=== PATIENT | female | born 1980 | race Caucasian/White ===

== ENCOUNTER 2016-11-11 19:24 | Inpatient (IN) | payer OTHER ==
[~2016-11-11] VITALS: Ht 152.4 cm; Wt 43.1 kg
[~2016-11-11 19:24] MED LIST: CEPHALEXIN500 MG PO; CLEOCIN HCL300 MG PO; CLINDAMYCIN HY300 MG PO; GOOD SENSE IBU200 MG PO; HYDROCODONE BIT1 T22 PO; PERCOCET 325 MG1 TA2 PO; VICODIN5-300 PO
--- NOTE | 2016-11-11 19:36 | NUR ---
PER PT ABSCESS IN NOSE X 2 DAYS NOW WITH FEVER, PER PT HOSPITALIZED LAST YR FOR SAME ON MY LEG. PER PT LMP 2 WEEKS AGO
--- NOTE | 2016-11-11 19:38 | NUR ---
LAST DOSE TYLENOL 3 PM SWITCHING ON AND OFF WITH MOTRIN.
--- NOTE | 2016-11-11 20:31 | ED HEAD/FACIAL INJ COMPLAINT ---
History of Present Illness General Chief Complaint: Skin Rash/ Abcess Stated Complaint: ABCESS IN NOSE Source: patient, old records Exam Limitations: no limitations Allergies Coded Allergies: Sulfa (Sulfonamide Antibiotics) (HIVES 11/11/16) diphenhydramine (From BENADRYL) (HEART RACING, ANXIETY, PANIC ATTACK 11/11/16) sulfamethoxazole (From BACTRIM) (HIVES 11/11/16) trimethoprim (From BACTRIM) (HIVES 11/11/16) Reconcile Medications Clindamycin HCl 300 MG CAPSULE 1 CAP PO TID skin infection Lysine HCl (L-Lysine) (Unknown Strength) TABLET (Unknown Dose) PO DAILY SUPPLEMENT (Reported) Multivitamin (Multi-Day Vitamins) 1 EACH TABLET 1 TAB PO DAILY SUPPLEMENT ( Reported) Multivitamin With Minerals (Hair, Skin & Nails) 1 EACH TABLET 1 TAB PO DAILY SUPPLEMENT (Reported) Oxycodone HCl/Acetaminophen (Percocet 5-325 MG Tablet) 5 MG-325 MG TABLET 1 TAB PO Q4P PRN PAIN SCALE 7-10 (SEVERE) Triage Note: PER PT ABSCESS IN NOSE X 2 DAYS NOW WITH FEVER, PER PT HOSPITALIZED LAST YR FOR SAME ON MY LEG. Triage Nurses Notes Reviewed? 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 She states that pain redness and swelling started 2 days ago and has been getting worse. She was able to partially draining abscess from the left nares yesterday and had moderate amount of purulent discharge however since then and is More red swollen and painful, she has had fever chills and sweats, she has had a decreased appetite. Her pain is severe it is throbbing and is worse with palpation. She is concerned that her infection is spreading as it has in the past. Previously she has failed outpatient antibiotics for treatment of these. She has pain that is radiating into her teeth and gumline and there is swelling along the anterior aspect of the maxillary region and lips (MONTY CONTI) Vital Signs & Intake/Output Vital Signs & Intake/Output Vital Signs Date Time Temp Pulse Resp B/P Pulse O2 O2 Flow FiO2 Ox Delivery Rate 11/14 0841 98.7 62 16 98/56 97 Room Air 11/13 2200 98.4 68 20 100/70 98 Room Air ED Intake and Output 11/14 0000 11/13 1200 Intake Total 1350 800 Output Total 600 Balance 750 800 Intake, IV 350 800 Intake, Oral 1000 Output, Urine 600 Past History Travel History Traveled to [place] past 21 day No Medical History Any Pertinent Medical History? see below for history Neurological: NONE EENT: NONE Cardiovascular: NONE Respiratory: NONE Gastrointestinal: NONE Hepatic: NONE Renal: NONE Musculoskeletal: NONE Psychiatric: anxiety, depression Endocrine: NONE Blood Disorders: NONE Cancer(s): NONE S[employer]IOR [employer]ER DBA/Reproductive: NONE Other Medical Hx: ABSCESS History of MRSA: Yes Active MRSA Infection: Yes History of VRE: No History of CDIFF: No Influenza Vaccine: 06/03/15 Tetanus Vaccine: 11/18/11 Surgical History Surgical History: N Psychosocial History Who do you live with Spouse What is your primary language Qatari Tobacco Use: Never used Family History Hx Contributory? No (MONTY CONTI) Review of Systems Review of Systems Constitutional: Reports: see HPI. Respiratory: Reports: no symptoms. Cardiovascular: Reports: no symptoms. GI: Reports: no symptoms. Genitourinary: Reports: no symptoms. Musculoskeletal: Reports: no symptoms. Neurological/Psychological: Reports: no symptoms. Hematologic/Endocrine: Reports: no symptoms. Immunologic/Allergic: Reports: no symptoms. All Other Systems: Reviewed and Negative (MONTY CONTI) Physical Exam Physical Exam General Appearance: well developed/nourished, mild distress Eyes: Bilateral: PERRL, EOMI. Ears, Nose, Throat: normal pharynx, normal ENT inspection, hearing grossly normal Neck: normal inspection, supple Respiratory: normal breath sounds Cardiovascular: regular rate/rhythm Gastrointestinal: soft, non-tender Back: normal inspection Extremities: normal inspection, normal range of motion, no edema Psychiatric: awake, alert, oriented x 3 Skin: intact, normal color, warm/dry Lymphatic: no anterior cervical tejinder Comments: Examination of the head and face reveals tympanic membranes normal appearing pupils equally round and reactive to light, head is atraumatic Intra-nares left side with 3 x 3 cm abscess that is erythematous indurated severely tender with swelling spreading to the upper lip and intraorally noted in the gum line on the maxilla. Positive warmth. (MONTY CONTI) Physical Exam Cranial Nerves: normal hearing, normal speech, PERRL (ASHU BLACKWOOD MD) Progress Hand-Off Endorsed To: ASHU BLACKWOOD MD Endorsed Time: 2212 Pending: CT Comments: tx with iv vanco for mrsa abscess (presumed) labs and ct of maxillofacial region ordered, consider admission. (MONTY CONTI) Differential Diagnosis: abscess and cellulitis Plan of Care: Orders Procedure Date/time Status Discharge Patient 11/14 UNK Active MISSING MEDICATION FORM 11/14 UNK Active Laboratory Tests 11/14/16 0710: Anion Gap 6, Estimated GFR > 60, BUN/Creatinine Ratio 15.7, CBC w Diff NO MAN DIFF REQ, RBC 3.49 L, MCV 92.5, MCH 32.2 H, RDW 13.1, MPV 7.5, Gran % 66.5, Lymphocytes % 17.8 L, Monocytes % 9.6 H, Eosinophils % 5.7 H, Basophils % 0.4 , Absolute Granulocytes 3.2, Absolute Lymphocytes 0.8 L, Absolute Monocytes 0.5 , Absolute Eosinophils 0.3, Absolute Basophils 0, PUBS MCHC 34.8 Diagnostic Imaging: Viewed by Me: CT Scan. Discussed w/RAD: CT Scan. Radiology Impression: There is a peripherally enhancing fluid collection within the premaxillary soft tissues consistent with an abscess. There are no periapical lucencies in the maxillary alveolar process therefore this abscess is not felt to be odontogenic. Comments: Discussed with ENT/Kingg (ASHU BLACKWOOD MD) Departure Departure Condition: Stable Referrals: OTERO GIBRAN KHOURY (PCP/Family) Departure Forms: Customer Survey General Discharge Information Prescriptions: Current Visit Scripts Oxycodone HCl/Acetaminophen (Percocet 5-325 MG Tablet) 1 TAB PO Q4P PRN PAIN SCALE 7-10 (SEVERE) #18 Clindamycin HCl 1 CAP PO TID #24 CAP (MONTY CONTI) Departure Time of Disposition: 0 Disposition: STILL A PATIENT Clinical Impression Primary Impression: Abscess of face Secondary Impressions: Abscess of nasopharynx Admission Note Spoke With: RABIA GLORIA MD Documentation of Exam: Documentation of any treatments & extenuating circumstances including Concerns Regarding Discharge (functional status, medication knowledge or non-compliance, living conditions, etc.) that warrant an admission rather than observation: IV antibiotics IV analgesia ENT consultation medication adjustment continuing care discharge planning PA/ASSOCIATE PROGRAMMER Co-Sign Statement Statement: ED Attending supervision documentation- x I saw and evaluated the patient. I have also reviewed all the pertinent lab results and diagnostic results. I agree with the findings and the plan of care as documented in the PA's/ASSOCIATE PROGRAMMER's documentation. [] I have reviewed the ED Record and agree with the PA's/ASSOCIATE PROGRAMMER's documentation. [] Additions or exceptions (if any) to the PAs/ASSOCIATE PROGRAMMER's note and plan are summarized below: [] (ASHU BLACKWOOD MD) Departure Condition: Stable Referrals: GIBRAN OTERO MD (PCP/Family) Departure Forms: Customer Survey General Discharge Information (MONTY CONTI) Departure Time of Disposition: 2300 Disposition: STILL A PATIENT Clinical Impression Primary Impression: Abscess of face Secondary Impressions: Abscess of nasopharynx Admission Note Spoke With: RABIA GLORIA MD Documentation of Exam: Documentation of any treatments & extenuating circumstances including Concerns Regarding Discharge (functional status, medication knowledge or non-compliance, living conditions, etc.) that warrant an admission rather than observation: IV antibiotics IV analgesia ENT consultation medication adjustment continuing care discharge planning PA/ASSOCIATE PROGRAMMER Co-Sign Statement Statement: ED Attending supervision documentation- x I saw and evaluated the patient. I have also reviewed all the pertinent lab results and diagnostic results. I agree with the findings and the plan of care as documented in the PA's/ASSOCIATE PROGRAMMER's documentation. [] I have reviewed the ED Record and agree with the PA's/ASSOCIATE PROGRAMMER's documentation. [] Additions or exceptions (if any) to the PAs/ASSOCIATE PROGRAMMER's note and plan are summarized below: [] (ASHU BLACKWOOD MD)
[2016-11-11 20:44] LABS: ABSOLUTE BASOPHIL COUNT 0 /CUMM (0.0-0.2); ABSOLUTE EOSINOPHIL COUNT 0 /CUMM (0.0-0.7); ABSOLUTE GRANULOCYTE CT 9.5 /CUMM (1.4-6.5); ABSOLUTE LYMPH COUNT 0.9 /CUMM (1.2-3.4); ABSOLUTE MONOCYTE COUNT 0.8 /CUMM (0.10-0.60); BASOPHIL % 0.4 % (0.0-2.0); EOSINOPHIL % 0.1 % (0-5); GRANULOCYTE % 83.9 % (42.2-75.2); HEMATOCRIT 36.4 % (37-47); MEAN CORPUSCULAR HGB 31.6 PG (27.0-31.0); MEAN CORPUSCULAR VOLUME 92.9 FL (81.0-99.0); MEAN PLATELET VOLUME 7.3 FL (7.4-10.4); PLATELET COUNT 191 /CUMM (130-400); RBC DISTRIBUTION WIDTH 12.8 % (11.5-14.5); RED BLOOD CELL CT 3.92 /CUMM (4.20-5.40); WHITE BLOOD CELL COUNT 11.3 /CUMM (4.8-10.8)
[2016-11-11] MEDS ORDERED: MULTI-DAY VITA1 EACH PO (21:11)
[2016-11-11] MEDS ORDERED: HAIR, SKIN & N1 EACH PO (21:11)
[2016-11-11] MEDS ORDERED: L-LYSINE500 M3 PO (21:12)
--- NOTE | 2016-11-11 21:27 | NUR ---
PT AMBULATORY TO CT
--- NOTE | 2016-11-11 21:50 | NUR ---
PT BACK FROM CT, NO COMPLAINTS, VANCO INFUSING.
--- NOTE | 2016-11-11 22:18 | CT SCAN REPORT ---
EXAMINATION: CT MAXILLOFACIAL WITH CONTRAST CLINICAL INFORMATION: Presumptive diagnosis abscess maxillary region, left naris. Pain, swelling, purulence, and fever. COMPARISON: No relevant prior imaging is available. TECHNIQUE: Multidetector helical imaging was performed in the axial plane with generation of coronal and sagittal reformatted images. The examination was performed after the administration of 95 mL of Optiray 320 intravenous contrast DLP: 669.5 mGy-cm FINDINGS: There is a peripherally enhancing discrete fluid collection located within the premaxillary soft tissues to the left of midline measuring 1.3 x 1.5 cm in AP by transverse dimensions. This finding is best illustrated on axial postcontrast image 86 of 233 series 5. There is inflammatory stranding within the adjacent subcutaneous tissues. There are no periapical lucencies in the maxillary alveolar process therefore this abscess is not felt to be odontogenic. There is mild lobulated mucosal thickening within the alveolar recesses of both maxillary sinuses. The primary maxillary sinus ostia are patent. There is bilateral infundibular narrowing. No ostiomeatal unit dysfunction. The left frontal sinus is well aerated. The right is not pneumatized. Frontal recesses are patent. Ethmoid air cells and sphenoid sinus are well aerated. Sphenoethmoidal recesses are patent. The nasal septum deviates the left anteriorly. The nasal cavity is otherwise unremarkable. The lamina papyracea and orbital floors are intact. There is no worrisome retrobulbar mass or inflammation. Orbital apices are unremarkable. Limited visualization of intracranial structures reveals no abnormal finding. There is no mastoid or middle ear effusion. The temporomandibular joints are symmetric. IMPRESSION: There is a peripherally enhancing fluid collection within the premaxillary soft tissues consistent with an abscess. There are no periapical lucencies in the maxillary alveolar process therefore this abscess is not felt to be odontogenic.
--- NOTE | 2016-11-11 22:34 | NUR ---
DR BLACKWOOD TO DISCUSS RESULTS WITH PT AND DETERMINE DISPO. PT VOICING NO COMPLAINTS, VANCO INFUSING.
--- NOTE | 2016-11-11 22:43 | NUR ---
PER DR BLACKWOOD PT TO BE ADMITTED.
--- NOTE | 2016-11-11 22:52 | NUR ---
VANCO RATE DROPPED TO 125 AT PT REQUEST, PT STATING "IT ALWAYS MAKES ME ITCH, THEY JUST RUN IT SLOWER." DENIES ANY HX OF MORE SERIOUS RXNS AND STATES SHE HAS HAD IV VANCO MULTIPLE TIMES. NO VISIBLE REDNESS OR HIVES, NO AIRWAY COMPLAINTS.
--- NOTE | 2016-11-11 22:52 | History & Physical ---
ALLY KHOURY,[facility] 11/11/16 8122: General Information and HPI MD Statement: I have seen and personally examined OLIMPIA KEY and documented this H&P. The patient is a 36 year old F who presented with a patient stated chief complaint of left nostril swelling and swelling of her upper lip and gums. Source of Information: patient, old records Exam Limitations: no limitations History of Present Illness: Ms Key is a 36-year-old female past medical history of recurrent folliculitis with last admission to [facility] in 10/2015 (for Right lower leg cellulitis) who presented to the emergency department on 11/11/2016 after worsening upper lip and left nostril pain. The patient states that she was in her usual state of health until 48 hours ago when she noted she had developed a pimple on the inner aspect of her left nostril. The patient states that this pimple continued to progress and increase in size until it finally popped and drained. Drainage was described as purulent and non foul smelling.The patient also endorses that she used some topical Mupirocin in her nostrils. Over the last 24 hours the patient states that the pain has progressed from her left inner nostril to her upper palate and inner top lip. Prior to admission the patient rates the pain at an 8 out of 10 in severity. Patient states that the pain was worse with movement, smiling and chewing. Patient has had no recent trauma or did not insert on foreign objects into her nostril. Patient also endorses that she was febrile up to 101.3 she took NSAIDs for symptomatic relief. She also states that she had associated chills. She denies any nausea vomiting or weakness. Must be noted that the patient states that her had a similar pimple approximately 2 weeks ago. Patient also states that her 2 children have previously had a single episode each of MRSA cellulitis. Both episodes occured approximately 5 years ago. Allergies/Medications Allergies: Coded Allergies: Sulfa (Sulfonamide Antibiotics) (HIVES 11/11/16) diphenhydramine (From BENADRYL) (HEART RACING, ANXIETY, PANIC ATTACK 11/11/16) sulfamethoxazole (From BACTRIM) (HIVES 11/11/16) trimethoprim (From BACTRIM) (HIVES 11/11/16) Home Med list Clindamycin HCl 300 MG CAPSULE 1 CAP PO TID skin infection Lysine HCl (L-Lysine) (Unknown Strength) TABLET (Unknown Dose) PO DAILY SUPPLEMENT (Reported) Multivitamin (Multi-Day Vitamins) 1 EACH TABLET 1 TAB PO DAILY SUPPLEMENT ( Reported) Multivitamin With Minerals (Hair, Skin & Nails) 1 EACH TABLET 1 TAB PO DAILY SUPPLEMENT (Reported) Oxycodone HCl/Acetaminophen (Percocet 5-325 MG Tablet) 5 MG-325 MG TABLET 1 TAB PO Q4P PRN PAIN SCALE 7-10 (SEVERE) Compliance With Home Meds: GOOD Past History Travel History Traveled to [place] past 21 day No Medical History Neurological: NONE EENT: NONE Cardiovascular: NONE Respiratory: NONE Gastrointestinal: NONE Hepatic: NONE Renal: NONE Musculoskeletal: NONE Psychiatric: anxiety, depression Endocrine: NONE Blood Disorders: NONE Cancer(s): NONE FOUNDATION ASSISTANT/Reproductive: NONE Other Medical Hx: <2015 Groin abcess 10/2015: RLE Abscess 06/2016: Right Thumbs Abscess History of MRSA: Yes Active MRSA Infection: Yes History of VRE: No History of CDIFF: No Influenza Vaccine: 06/03/15 Tetanus Vaccine: 11/18/11 Surgical History Surgical History: N Past Family/Social History Family History Relations & Conditions if any MOTHER, , Age 50-60; Cause: Overdose. FATHER, , Age 30-40; Cause: Suicide. Psychosocial History Where do you live? Home Who Do You Live With? spouse Services at Home: None Primary Language: Angolan Smoking Status: Never Smoked ETOH Use: occasional use Illicit Drug Use: denies illicit drug use Functional Ability ADLs Independent: dressing, eating, toileting, bathing. Ambulation: independent IADLs Independent: shopping, housework, finances, food prep, telephone, transportation , medication admin. Sexual History Sexually Active Yes # of partners 1 Sexual Orientation Heterosexual Employment History Employment Employed Profession/Employer Self Employed Review of Systems Review of Systems Constitutional: Reports: see HPI, chills, fever. Denies: diaphoresis, malaise, weakness. Cardiovascular: Denies: chest pain, edema, orthopena, palpitations, peripheral edema. Respiratory: Denies: cough, hemoptysis, orthopnea, short of breath. GI: Denies: abdominal pain, bloating, constipation, diarrhea, distention, bowel incontinence, nausea, vomiting. Genitourinary: Denies: discharge, dysuria, frequency, hematuria. Musculoskeletal: Denies: back pain, gout, joint pain, joint swelling. Exam & Diagnostic Data Last 24 Hrs of Vital Signs/I&O Vital Signs Date Time Temp Pulse Resp B/P Pulse O2 O2 Flow FiO2 Ox Delivery Rate 11/11 2149 97.7 82 18 104/57 99 Room Air 11/11 2109 Room Air 11/11 1936 100.4 92 22 109/75 98 Physical Exam General Appearance Alert, Oriented X3, Cooperative HEENT PERRLA, EOMI, Mucous Membr. moist/pink, Left inner nosril: furuncle. Generalized Erythema and Tenderness Philtrum. Upper Bucal Mucosa: Furuncle. Neck Supple, No JVD Lymphatic Axillary nl, Cervical nl Cardiovascular Regular Rate, Normal S1, Normal S2, No Murmurs Lungs Clear to Auscultation Abdomen Normal Bowel Sounds, Soft, No Tenderness Neurological Normal Speech, Sensation Intact Extremities No Edema, Normal Pulses Last 24 Hrs of Labs/Velasquez: Laboratory Tests 11/11/162321: Lactic Acid Cancelled 11/11/162035: Anion Gap 11, Estimated GFR > 60, BUN/Creatinine Ratio 19.0, Glucose 113 H, Lactic Acid 0.8, Calcium 9.3, Total Bilirubin 0.5, AST 17, ALT 27, Alkaline Phosphatase 51, Total Protein 7.0, Albumin 4.4, Globulin 2.6, Albumin/Globulin Ratio 1.7, Total Beta HCG NEGATIVE, CBC w Diff NO MAN DIFF REQ, RBC 3.92 L, MCV 92.9, MCH 31.6 H, RDW 12.8, MPV 7.3 L, Gran % 83.9 H, Lymphocytes % 8.1 L, Monocytes % 7.5, Eosinophils % 0.1, Basophils % 0.4, Absolute Granulocytes 9.5 H, Absolute Lymphocytes 0.9 L, Absolute Monocytes 0.8 H, Absolute Eosinophils 0, Absolute Basophils 0, PUBS MCHC 34.0 Microbiology 11/11 2043 BLOOD: Blood Culture - RECD 11/11 2035 BLOOD: Blood Culture - RECD Diagnostic Data Other Results EXAMINATION: CT MAXILLOFACIAL WITH CONTRAST CLINICAL INFORMATION: Presumptive diagnosis abscess maxillary region, left naris. Pain, swelling, purulence, and fever. COMPARISON: No relevant prior imaging is available. TECHNIQUE: Multidetector helical imaging was performed in the axial plane with generation of coronal and sagittal reformatted images. The examination was performed after the administration of 95 mL of Optiray 320 intravenous contrast DLP: 669.5 mGy-cm FINDINGS: There is a peripherally enhancing discrete fluid collection located within the premaxillary soft tissues to the left of midline measuring 1.3 x 1.5 cm in AP by transverse dimensions. This finding is best illustrated on axial postcontrast image 86 of 233 series 5. There is inflammatory stranding within the adjacent subcutaneous tissues. There are no periapical lucencies in the maxillary alveolar process therefore this abscess is not felt to be odontogenic. There is mild lobulated mucosal thickening within the alveolar recesses of both maxillary sinuses. The primary maxillary sinus ostia are patent. There is bilateral infundibular narrowing. No ostiomeatal unit dysfunction. The left frontal sinus is well aerated. The right is not pneumatized. Frontal recesses are patent. Ethmoid air cells and sphenoid sinus are well aerated. Sphenoethmoidal recesses are patent. The nasal septum deviates the left anteriorly. The nasal cavity is otherwise unremarkable. The lamina papyracea and orbital floors are intact. There is no worrisome retrobulbar mass or inflammation. Orbital apices are unremarkable. Limited visualization of intracranial structures reveals no abnormal finding. There is no mastoid or middle ear effusion. The temporomandibular joints are symmetric. IMPRESSION: There is a peripherally enhancing fluid collection within the premaxillary soft tissues consistent with an abscess. There are no periapical lucencies in the maxillary alveolar process therefore this abscess is not felt to be odontogenic. DICTATED BY: SANDRA KHOURY,KHOI De Guzman Assessment/Plan Assessment: This is a 36-year-old female with past medical history of MRSA who has developed a furuncle and further developed an abcsess. Patient does not endorse any factors that might be predisposing her to recurrent infections. She does state that she has been compliant with mupirocin and Chlorhexidine wipes. ------- In the emergency department she was given a one-time dose of vancomycin, Toradol and ibuprofen for symptomatic relief. -------- #MRSA Furunculosis with subsequent development of a premaxilliary Abscess Admit the patient to general medicine floor. Initiate contact precautions. Continue IV Vancomycin 750 mg BID. Unasyn 1000mg Q8 for anerobe and gram - Coverage. Acetaminophen 650 mg for fever. Chlorhexidine wipes when necessary ID Consult in AM ENT Consult in AM CBC in a.m. BEP in a.m. Ensure area remains clean and consider warm compresses for symptomatic relief.Keep area dry. Can be considered for long-term antibiotic with clindamycin as prophylactic treatment. Patient will most likely need referral to an manager sql for further workup as to recurrent MRSA cellulitis. Likely due to questionable immunodeficiency. Diet Heart healthy DVT prophylaxis Lovenox subcutaneous Code Full Code As Ranked By This Provider Problem List: 1. Abscess and cellulitis Core Measures/Miscellaneous Acute Coronary Syndrome ACS Diagnosis: No Cerebrovascular Accident CVA/TIA Diagnosis: No Congestive Heart Failure CHF Diagnosis: No Venous Thromboembolism VTE Risk Factors: Acute medical illness VTE Prophylaxis Ordered Inpt: Pharm- Lovenox No Mech VTE prophylaxis d/t: No contraindications No VTE Pharm Prophylaxis d/t: No contraindications VTE Diagnosis: No VTE Type: NONE VTE Confirmed by (Test): NONE Severe Sepsis Severe Sepsis Present: No Septic Shock Septic Shock Present: No Miscellaneous Documentation Attending Case Discussed With: RABIA GLORIA MD Primary Care Physician: GIBRAN OTERO MD Patient sees these Specialists NA Level of Patient Care: General Medicine SHERON GLORIA MD 11/11/16 2314: Attending MD Review Statement Attending Statement Attending MD Statement: examined this patient, discuss w/resident/PA/WRAP CHECKER, agreed w/resident/PA/WRAP CHECKER Attending Assessment/Plan: 36 yo F with h/o recurrent furunculosis (right groin MRSA requiring I & D, RLE and most recently right thumb) is here for evaluation of abscess in her nose. She noticed a pimple to the left nasal columella two days ago, that drained on its own, associated with upper lip swelling and erythema. Fever 101.3, chills+. Odynophagia+. Since her discharge in Oct 2015, she has been paying attention to good hygiene, sterilizing the skin with Hibiclens and mupirocin to the nares. She denies trauma or picking her nose. Vitals: Tmax 100.4, otherwise stable. Nasal exam suggestive of a small indurated erythematous area to the left columella (unable to assess its posterior extent), with swelling extending to upper lip. Labs: WBC 11.3, BUN 19. CT maxillofacial: abscess within the premaxillary soft tissues, no periapical lucencies in the maxillary alveolar process hence not odontogenic. 1. Left nasal furunculosis with premaxillary abscess. GM admit, blood cultures, cover for MRSA with IV Vancomycin, will add IV Unasyn for [id number] coverage, ENT consult in AM for possible needle drainage. ID consult in AM. IV fluids and pain management. DVT ppx Alps (early ambulation, low risk). Full code. VIRGINIA MONTOYA 11/11/16 0000: Resident Review Statement Resident Statement: examined this patient, discussed with media relations intern, agreed with media relations intern, discussed with family, reviewed EMR data (avail), discussed with nursing , discussed with case mgmt, reviewed images, amended to note Other Findings: 36-year-old woman with past medical history of recurrent fruncle, cellulitis and soft tissue infection with MRSA not chronic suppressive Abx therapy presented to the ED complaining of skin lesion in her left nostril and soreness of her mouth and swelling of her upper gums and lip. For the past year patient had 4 episodes of soft tissue infection/fruncle with MRSA , the most recent one resulted in hospitalization in [facility] from October 03 to 10/07/2015, during which patient was treated with IV vancomycin and discharged home on by mouth clindamycin. Two days ago when she developed a small pimple on her left nostril which was associated with excruciating sharp constant pain of 8 out of 10. Her pimple became larger and eventually drained yellow fluid. She also had max temperature of 101.3 at home, + shaking chills. Her symptoms progressively got worse and patient started feeling pain and swelling in her mouth (upper gums and upper lip). She reports odynophagia, but denies nausea vomiting diarrhea. Recent travel or sick contact, recent trauma to her nose, recent infection and recent stress, history of eczema. Patient mentions that her has a history of frequent spontaneous boils and had recently recovered from another episode. 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 FH: non-contributory except for one episode of MRSA in each one of her kids at a very young age ROS: Swelling and soreness of upper gum and lips and left nostril. Physical exam: HEET: Left nostril: There is a skin breakage at the antral medial surface of the left nostril, no obvious drainage,+ erythema and tenderness; right nostril within normal limits; Buccal mocous: there is a frumcle in the mucousal surface of the upper lip; no lymphadenopathy, proper oral hygiene; CV: S1S2 no murmur, lungs are clear. Abdomen and extremities: WNL. Lab findings Sodium 136 BUN 19 creatinine 1 WBC 11.3 with significant left shift but no bandemia hemoglobin 12.4 hematocrit 36.[address] scan: There is a peripherally enhancing fluid collection within the premaxillary soft tissues consistent with an abscess. There are no periapical lucencies in the maxillary alveolar process therefore this abscess is not felt to be odontogenic. Assessment 36-year-old woman with history of recurrent frontal/soft tissue infection with MRSA was admitted for frunckle in her left nostril and buccal mocousal membrane. #1 MRSA infection with protocol mucosal involvement * Admit to general medical floor * Vancomycin 750 mg IV twice a day start from tomorrow at 10 AM * Unasyn 1000 mg every 8 hours for gram-negative coverage considering focal mucosal membrane involvement * Repeat CBC in the a.m. * ID consult in the a.m. * Odynophagia and poor oral intake; normal saline 100 mL per hour * Follow ENT recommendation in thet morning * Pain management mainly with IV anti-inflammatory medications Heparin 5000 units subcutaneous every 8 hours for DVT prophylaxis Regular diet Full code
--- NOTE | 2016-11-11 23:16 | NUR ---
PT AMBULATING AROUND ROOM WITHOUT DIFFICULTY, AWARE OF POC AND ORDERS FOR PRN PAIN MEDS, NO COMPLAINTS AT THIS TIME. HOUSE STAFF AT BEDSIDE.
--- NOTE | 2016-11-11 23:19 | NUR ---
DR GLORIA AT BEDSIDE FOR EVAL. MADE AWARE OF DUPLICATE VANCO ORDERS.
--- NOTE | 2016-11-12 | NUR ---
PT ASSIGNED TO 171-1
--- NOTE | 2016-11-12 00:13 | NUR ---
REPORT GIVEN TO MAGGIE SERRANO
[2016-11-12 00:30] VITALS: BP 110/60
--- NOTE | 2016-11-12 02:04 | Admission Certification ---
Admission Certification Certification Statement - As attending physician, I certify that at the time of - admission, based on clinical presentation, severity of - symptoms, need for further diagnostic testing and - therapeutic interventions, and risk of adverse outcomes - without in-hospital treatment, in my clinical assessment, - this patient requires an acute hospital stay for a minimum - of two nights or longer. I have also considered psychsocial - factors such as support system, advanced age, financial - issues, cognitive issues, and failed out-patient treatments, - past re-admission history, safety of patient, and lack of - compliance as applicable. Specific rationale supporting this admission is: Left nasal furunculosis with pre-maxillary soft tissue abscess.
--- NOTE | 2016-11-12 07:24 | PN- Housestaff ---
JEFFRY KHOURY,[facility] 11/12/16 0724: Subjective Follow-up For: MRSA Furunculosis with subsequent development of a premaxilliary Abscess Subjective: Patient was seen and examined this morning, she reported pain over upper lip and left nostrail. She denied any headache, fever or chills. She had fever and chills before admission. She denied any visual changes, hearing changes. She denied any shortness of breath, palpitation. Denied any abdominal pain, nausea or vomiting, diarrhea. Denied IV drug use, chronic health conditions including diabetes. Patient had multiple MRSA infection total of 4 episodes over the period of last year, 3 was treated as an outpatient with clindamycin, and one was admitted to the hospital treated with vancomycin and discharged on clindamycin. Patient didn't have any medical complaints before last year. Review of Systems Constitutional: Reports: see HPI. Objective Last 24 Hrs of Vital Signs/I&O Vital Signs Date Time Temp Pulse Resp B/P Pulse O2 O2 Flow FiO2 Ox Delivery Rate 11/12 1622 98.0 83 20 100/50 97 Room Air 11/12 1422 102/52 11/12 0830 98.4 83 20 80/50 97 Room Air 11/12 0030 98.2 79 20 110/60 98 Room Air 11/11 2150 97.7 82 18 104/57 99 Room Air 11/11 2110 Room Air Intake & Output 11/12 1600 11/12 0800 11/12 0000 Intake Total 1700 640 250 Output Total Balance 1700 640 250 Intake, IV 1300 400 250 Intake, Oral 400 240 Patient 43.091 kg 43.091 kg Weight Physical Exam General Appearance: Alert, Oriented X3, Cooperative, No Acute Distress Skin: mild swelling and erythema of upper lip no discharge, no bleeding HEENT: Atraumatic, PERRLA, EOMI, Mucous Membr. moist/pink Neck: Supple Cardiovascular: Regular Rate, Normal S1, Normal S2, No Murmurs Lungs: Clear to Auscultation, Normal Air Movement Abdomen: Normal Bowel Sounds, Soft, No Tenderness Neurological: Normal Gait, Normal Speech, Strength at 5/5 X4 Ext, Normal Tone, Sensation Intact, Cranial Nerves 3-12 NL, Reflexes 2+ Extremities: No Clubbing, No Cyanosis, No Edema, Normal Pulses Assessment/Plan Assessment: This is a 36-year-old female with past medical history of MRSA who has developed a furuncle and further developed an abcsess. Patient does not endorse any factors that might be predisposing her to recurrent infections. She does state that she has been compliant with mupirocin and Chlorhexidine wipes. Problems #MRSA Furunculosis with subsequent development of a premaxilliary Abscess -Maxillofacial with contrast CT reveled There is a peripherally enhancing fluid collection within the premaxillary soft tissues consistent with an abscess. There are no periapical lucencies in the maxillary alveolar process therefore this abscess is not felt to be odontogenic. -Temperature 98.4 with MAXIMUM TEMPERATURE 100.4, white blood cell 8.3<11.3 -ID consultation was obtained given history of recurrent MRSA infection 4 times over the period of last year -Continue IV Unasyn 750 mg twice a day -Discontinue Unasyn -Follow cultures blood and head, neck culture -ENT consultation was obtained, patient had pus evacuation by an incision at the inner surface of her upper lip -Percocet 1 tab every 6 for pain when necessary -Consider decolonization as an outpatient upon discharge -For possible discharge on Tuesday #Hypotension -This morning patient blood pressure was 80/40, repeated blood pressure 80/50 -Patient was given challenge fluid off 1 L bolus -Repeated blood pressure 102/52 Diet Heart healthy DVT prophylaxis Lovenox subcutaneous Code Full Code Problem List: 1. Abscess and cellulitis Pain Ratin Pain Location: upper lip, left nostril Pain Goal: Pain 4 or less Pain Plan: Percocet 1 tab every 6 when necessary Tomorrow's Labs & Rationales: [facility] ROLAN KHOURY,[place] 11/12/16 1219: Attending MD Review Statement Attending Statement Attending MD Statement: examined this patient, discuss w/resident/PA/IRRIGATION PUMP INSTALLER, agreed w/resident/PA/IRRIGATION PUMP INSTALLER, reviewed EMR data (avail), discussed with nursing, discussed with case mgmt, amended to note Attending Assessment/Plan: Patient seen and examined. Lying comfortably in bed not in any distress. She is afebrile. She reports some pain in the upper lip. Denies difficulty swallowing. Denies any discharge currently no she did report significant discharge at home. She is hypotensive with systolic blood pressure in the 80s this morning. Patient reports that she does run low blood pressure. Review of her admission in October shows that her blood pressure was in the 90s to low 100s. She is not tachycardic. She is nontoxic looking. On examination she has mild swelling of the upper lip. There is mild erythema within the left nostril. There is no discharge. It is mildly tender. She has no other lesion around the body. Problems: 1. Cellulitis with abscess left premaxillary soft tissue. 2. MRSA colonization. 3. Hypertension Plan: -Continue antibiotic therapy with vancomycin. Follow blood cultures. -Follow-up with ENT service regarding incision and drainage although there is no appearance of a significant enough collection for drainage. -Apply warm compress to the upper lip and nares. -Discussed with the ID service regarding sterilization after treatment of current infection to prevent future episodes. -Patient is hypotensive but does not appear overtly septic. Her lactic acid level is within normal limits. She is petite and has a history of low blood pressure. Would recommend fluid bolus with 1 L of normal saline and reevaluating her blood pressure. -DVT prophylaxis with frequent ambulation.
[2016-11-12 08:16] LABS: ABSOLUTE BASOPHIL COUNT 0 /CUMM (0.0-0.2); ABSOLUTE EOSINOPHIL COUNT 0.2 /CUMM (0.0-0.7); ABSOLUTE GRANULOCYTE CT 6.3 /CUMM (1.4-6.5); ABSOLUTE MONOCYTE COUNT 0.8 /CUMM (0.10-0.60); BASOPHIL % 0.3 % (0.0-2.0); EOSINOPHIL % 2.3 % (0-5); MEAN CORPUSCULAR HGB 32.4 PG (27.0-31.0); MEAN CORPUSCULAR HGB CONC 34.8 G/DL (33.0-37.0); MEAN CORPUSCULAR VOLUME 93.1 FL (81.0-99.0); MEAN PLATELET VOLUME 7.7 FL (7.4-10.4); PLATELET COUNT 167 /CUMM (130-400); RBC DISTRIBUTION WIDTH 13.2 % (11.5-14.5); RED BLOOD CELL CT 3.66 /CUMM (4.20-5.40); WHITE BLOOD CELL COUNT 8.3 /CUMM (4.8-10.8)
[2016-11-12 08:30] VITALS: BP 80/50
[2016-11-12 14:22] VITALS: BP 102/52
--- NOTE | 2016-11-12 15:17 | Cons- Infect Disease ---
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, initially involving the right groin, with the culture at that time positive for MRSA, last hospitalized one year prior to admission with 3 abscesses in the right leg, all requiring I&D, with no cultures obtained, treated with Vancomycin and discharged on Clindamycin, and with another lesion on her right thumb approximately 5 months prior to admission, treated with oral Clindamycin, admitted on November 11 after presenting to the emergency room with a 2 day history of a lesion in the left nostril, which began as a pimple, with drainage of yellow fluid, but with swelling and discomfort spreading to the philtrum associated with a fever to 101. On admission she was febrile to 100.4. Laboratory data revealed a white blood cell count of 11,000, BUN/creatinine 19 and 1.0, with normal liver enzymes. CT of the maxillofacial area revealed a peripherally enhancing fluid collection within the premaxillary soft tissues consistent with an abscess, measuring 1.3 x 1.5 cm. She was begun on Vancomycin and Unasyn, with temperatures and white blood cell count now normal. She was evaluated by ENT this morning who apparently performed an I&D through her upper lip, with a culture submitted. At present she feels improved. Allergies/Medications Allergies: Coded Allergies: Sulfa (Sulfonamide Antibiotics) ([facility] 11/11/16) diphenhydramine (From BENADRYL) (HEART RACING, ANXIETY, PANIC ATTACK 11/11/16) sulfamethoxazole (From BACTRIM) ([facility] 11/11/16) trimethoprim (From BACTRIM) ([facility] 11/11/16) Home Med List: Lysine HCl (L-Lysine) (Unknown Strength) TABLET (Unknown Dose) PO DAILY SUPPLEMENT (Reported) Multivitamin (Multi-Day Vitamins) 1 EACH TABLET 1 TAB PO DAILY SUPPLEMENT ( Reported) Multivitamin With Minerals (Hair, Skin & Nails) 1 EACH TABLET 1 TAB PO DAILY SUPPLEMENT (Reported) Past History Travel History Traveled to [place] past 21 day No Medical History Blood Transfusion Hx: No Neurological: NONE EENT: NONE Cardiovascular: NONE Respiratory: NONE Gastrointestinal: NONE Hepatic: NONE Renal: NONE Musculoskeletal: NONE Psychiatric: anxiety, depression Endocrine: NONE Blood Disorders: NONE Cancer(s): NONE NIGHT CLERK AUDITOR/Reproductive: NONE Other Medical Hx: Recurrent furunculosis History of MRSA: Yes Active MRSA Infection: Yes History of VRE: No History of CDIFF: No Isolation History: Contact Influenza Vaccine: 06/03/15 Tetanus Vaccine: 11/18/11 Surgical History Surgical History: none Family History Relations & Conditions If Any: MOTHER, , Age 50-60; Cause: Overdose. FATHER, , Age 30-40; Cause: Suicide. Psychosocial History Where Do You Live? Home Who Do You Live With? spouse Services at Home: None Primary Language: Thai Smoking Status: Never Smoked ETOH Use: occasional use Illicit Drug Use: denies illicit drug use Functional Ability ADLs Independent: dressing, eating, toileting, bathing. Ambulation: independent IADLs Independent: shopping, housework, finances, food prep, telephone, transportation , medication admin. Sexual History Sexually Active: Yes Number of Partners: 1 Sexual Orientation: Heterosexual Employment History Employment: Employed Profession/Employer: Self Employed Review of Systems Review of Systems All Other Systems: Reviewed and Negative Exam & Diagnostic Data Last 24 Hrs of Vital Signs/I&O Vital Signs Date Time Temp Pulse Resp B/P Pulse O2 O2 Flow FiO2 Ox Delivery Rate 11/12 1422 102/52 11/12 0830 98.4 83 20 80/50 97 Room Air 11/12 0030 98.2 79 20 110/60 98 Room Air 11/11 2150 97.7 82 18 104/57 99 Room Air 11/11 2110 Room Air 11/11 1937 100.4 92 22 109/75 98 Intake & Output 11/12 1600 11/12 0800 11/12 0000 Intake Total 1700 640 250 Output Total Balance 1700 640 250 Intake, IV 1300 400 250 Intake, Oral 400 240 Patient 94 lb 15.99 oz 94 lb 15.99 oz Weight Physical Exam Other Physical Findings: She is awake and alert in no acute distress. MAXIMUM TEMPERATURE 100.4. Skin reveals no rash. HEENT erythema and edema on the inner aspect of her left nostril, with mild swelling of the philtrum, with no erythema; inner aspect of the upper lip with several ulcerations. Neck is supple with no adenopathy. Lungs are clear. Heart regular rhythm with no murmur. Abdomen is soft, nontender with positive bowel sounds. Back no CVA tenderness. Extremities no cyanosis, clubbing or edema. Neuro is without focality. Last 24 Hours of Lab Results: Laboratory Tests 11/12 11/11 0600 2322 Chemistry Sodium (137 - 145 mmol/L) 140 Potassium (3.5 - 5.1 mmol/L) 3.7 Chloride (98 - 107 mmol/L) 107 Carbon Dioxide (22 - 30 mmol/L) 24 Anion Gap (5 - 16) 8 BUN (7 - 17 mg/dL) 14 Creatinine (0.5 - 1.0 mg/dL) 0.7 Estimated GFR (>60 ml/min) > 60 BUN/Creatinine Ratio (7 - 25 %) 20.0 Lactic Acid Cancelled Hematology CBC w Diff NO MAN DIFF REQ WBC (4.8 - 10.8 /CUMM) 8.3 RBC (4.20 - 5.40 /CUMM) 3.66 L Hgb (12.0 - 16.0 G/DL) 11.9 L Hct (37 - 47 %) 34.0 L MCV (81.0 - 99.0 FL) 93.1 MCH (27.0 - 31.0 PG) 32.4 H RDW (11.5 - 14.5 %) 13.2 Plt Count (130 - 400 /CUMM) 167 MPV (7.4 - 10.4 FL) 7.7 Gran % (42.2 - 75.2 %) 76.0 H Lymphocytes % (20.5 - 51.1 %) 12.3 L Monocytes % (1.7 - 9.3 %) 9.1 Eosinophils % (0 - 5 %) 2.3 Basophils % (0.0 - 2.0 %) 0.3 Absolute Granulocytes (1.4 - 6.5 /CUMM) 6.3 Absolute Lymphocytes (1.2 - 3.4 /CUMM) 1.0 L Absolute Monocytes (0.10 - 0.60 /CUMM) 0.8 H Absolute Eosinophils (0.0 - 0.7 /CUMM) 0.2 Absolute Basophils (0.0 - 0.2 /CUMM) 0 PUBS MCHC (33.0 - 37.0 G/DL) 34.8 02/09 2036 Chemistry Sodium (137 - 145 mmol/L) 136 L Potassium (3.5 - 5.1 mmol/L) 4.1 Chloride (98 - 107 mmol/L) 103 Carbon Dioxide (22 - 30 mmol/L) 22 Anion Gap (5 - 16) 11 BUN (7 - 17 mg/dL) 19 H Creatinine (0.5 - 1.0 mg/dL) 1.0 Estimated GFR (>60 ml/min) > 60 BUN/Creatinine Ratio (7 - 25 %) 19.0 Glucose (65 - 99 mg/dL) 113 H Lactic Acid (0.7 - 2.1 mmol/L) 0.8 Calcium (8.4 - 10.2 mg/dL) 9.3 Total Bilirubin (0.2 - 1.3 mg/dL) 0.5 AST (14 - 36 U/L) 17 ALT (9 - 52 U/L) 27 Alkaline Phosphatase (<127 U/L) 51 Total Protein (6.3 - 8.2 g/dL) 7.0 Albumin (3.5 - 5.0 g/dL) 4.4 Globulin (1.9 - 4.2 gm/dL) 2.6 Albumin/Globulin Ratio (1.1 - 2.2 %) 1.7 Total Beta HCG (NEGATIVE) NEGATIVE Hematology CBC w Diff NO MAN DIFF REQ WBC (4.8 - 10.8 /CUMM) 11.3 H RBC (4.20 - 5.40 /CUMM) 3.92 L Hgb (12.0 - 16.0 G/DL) 12.4 Hct (37 - 47 %) 36.4 L MCV (81.0 - 99.0 FL) 92.9 MCH (27.0 - 31.0 PG) 31.6 H RDW (11.5 - 14.5 %) 12.8 Plt Count (130 - 400 /CUMM) 191 MPV (7.4 - 10.4 FL) 7.3 L Gran % (42.2 - 75.2 %) 83.9 H Lymphocytes % (20.5 - 51.1 %) 8.1 L Monocytes % (1.7 - 9.3 %) 7.5 Eosinophils % (0 - 5 %) 0.1 Basophils % (0.0 - 2.0 %) 0.4 Absolute Granulocytes (1.4 - 6.5 /CUMM) 9.5 H Absolute Lymphocytes (1.2 - 3.4 /CUMM) 0.9 L Absolute Monocytes (0.10 - 0.60 /CUMM) 0.8 H Absolute Eosinophils (0.0 - 0.7 /CUMM) 0 Absolute Basophils (0.0 - 0.2 /CUMM) 0 PUBS MCHC (33.0 - 37.0 G/DL) 34.0 Last 24 Hours of Velasquez Results: Blood cultures 2 November 11 negative Lip abscess November 12 pending Diagnostic Data Recent Imaging Findings: CT of the maxillofacial area November 11 revealed a peripherally enhancing fluid collection within the premaxillary soft tissues consistent with an abscess, measuring 1.3 x 1.5 cm. Assessment/Plan Assessment/Plan Impression: This is a 36-year-old woman with a history of recurrent furunculosis admitted on November 11 with a 2 day history of inflammation on the inside of her left nostril, which began as a pimple, with inflammation extending inferiorly to involve the philtrum and inside aspect of the upper lip, found to have a low- grade fever with a mild leukocytosis, with a small abscess in the pre-maxillary soft tissues seen on CT scan, now status post I&D through the upper lip. This appears to be consistent with her history of recurrent furunculosis and is most likely secondary to MRSA. Efforts at prevention of further episodes, for example with Hibiclens and Mupirocin, have been attempted in the past, obviously without complete success. There are reports of treatment with a combination of systemic antibiotics for 10 days, for example Minocycline with Rifampin, or a more prolonged course, for example 3 months, of Clindamycin alone, though these are mostly anecdotal and there is no data to support any of these measures. Suggestion: 1. Continue warm compresses 2. Follow-up recent cultures 3. Reinforcement of the need for good hygiene 4. Discontinue Unasyn 5. Continue Vancomycin, with change to Clindamycin 300 mg po every 8 hours if she continues to improve and based on the culture results, to complete a 7-10 day course 6. Consider other measures for prevention, as noted above, after she completes her course of antibiotics based on the culture results Jessie Shah MD will be covering me until November 22 Consult Acknowledgment - Thank you for your consult request.
[2016-11-12 16:22] VITALS: BP 100/50
[2016-11-13 01:00] VITALS: BP 100/58
[2016-11-13 07:44] VITALS: BP 110/56
[2016-11-13 08:38] LABS: ABSOLUTE BASOPHIL COUNT 0 /CUMM (0.0-0.2); ABSOLUTE EOSINOPHIL COUNT 0.2 /CUMM (0.0-0.7); ABSOLUTE GRANULOCYTE CT 4.8 /CUMM (1.4-6.5); ABSOLUTE LYMPH COUNT 0.9 /CUMM (1.2-3.4); ABSOLUTE MONOCYTE COUNT 0.5 /CUMM (0.10-0.60); BASOPHIL % 0.3 % (0.0-2.0); EOSINOPHIL % 2.5 % (0-5); MEAN CORPUSCULAR HGB 32.2 PG (27.0-31.0); MEAN CORPUSCULAR HGB CONC 34.7 G/DL (33.0-37.0); MEAN CORPUSCULAR VOLUME 92.8 FL (81.0-99.0); MEAN PLATELET VOLUME 7.8 FL (7.4-10.4); PLATELET COUNT 141 /CUMM (130-400); RBC DISTRIBUTION WIDTH 13.2 % (11.5-14.5); RED BLOOD CELL CT 3.45 /CUMM (4.20-5.40); WHITE BLOOD CELL COUNT 6.4 /CUMM (4.8-10.8)
--- NOTE | 2016-11-13 09:23 | PN- Housestaff ---
See Addendum Subjective Follow-up For: MRSA Furunculosis with subsequent development of a premaxilliary Abscess Complaints: patient is complaining of pain in on the both side of the nose and the upper lip. She was saying that her whole face was swollen because of the IV fluid. Subjective: Patient is seen and examined at the bedside. She was complaining of pain on both side of the nose and swelling of the upper lip. She was saying that pain is out of proportion to the swelling, she is not able to chew and swallow. she was also complaining of pain in the neck and the both ears Review of Systems Constitutional: Reports: weakness. Denies: chills, diaphoresis, fever, malaise. EENTM: Reports: eye pain, nasal congestion, nasal pain, throat pain, mouth pain. Cardiovascular: Denies: chest pain, edema, orthopena, palpitations, peripheral edema. Respiratory: Denies: cough, hemoptysis, orthopnea, short of breath, sputum production, stridor. Gastrointestinal: Denies: abdominal pain, bloating, constipation, diarrhea, distention, bowel incontinence, melena, nausea, bloody stool, changes in stool. Genitourinary: Denies: discharge, dysuria, frequency, hematuria, hesitation, nocturia. Musculoskeletal: Denies: back pain, gout, joint pain, joint swelling, muscle pain, muscle stiffness. Objective Last 24 Hrs of Vital Signs/I&O Vital Signs Date Time Temp Pulse Resp B/P Pulse O2 O2 Flow FiO2 Ox Delivery Rate 11/13 0744 98.1 83 20 110/56 98 11/13 0100 98.5 72 16 100/58 99 Room Air 11/12 1622 98.0 83 20 100/50 97 Room Air Intake & Output 11/13 1600 11/13 0800 11/13 0000 Intake Total 2010 484 4009 Output Total 600 Balance 732 200 0584 Intake, IV 350 800 800 Intake, Oral 800 720 Output, Urine 600 Physical Exam General Appearance: Alert, Oriented X3, Cooperative, Mild Distress Skin: No Rashes, No Breakdown, swelling of the upper lip HEENT: Atraumatic, PERRLA, EOMI, swelling of the upper lip and small ulcer on the mucous membrane of the upper lip Neck: Supple, No JVD, No thryomegaly Cardiovascular: Normal S1, Normal S2 Lungs: Clear to Auscultation, Normal Air Movement Abdomen: Soft, No Tenderness Neurological: Normal Speech Extremities: No Cyanosis, No Edema, Normal Pulses Vascular: Normal Pulses Assessment/Plan Assessment: This is a 36-year-old female with past medical history of MRSA who has developed a furuncle and further developed an abcsess. Patient does not endorse any factors that might be predisposing her to recurrent infections. She does state that she has been compliant with mupirocin and Chlorhexidine wipes. Maxillofacial with contrast CT There is a peripherally enhancing fluid collection within the premaxillary soft tissues consistent with an abscess. There are no periapical lucencies in the maxillary alveolar process therefore this abscess is not felt to be odontogenic. Problems MRSA Furunculosis with subsequent development of a premaxilliary Abscess Hypotension -recovered Anemia Vital signs -temperature 98.1, pulse 83, respiratory rate 20, blood pressure 110 /56, SPO2 98% on room air Culture of the lip abscess shows staph aureus Plan - * We will increase the pain medication-added Percocet every 4 P * According to the ID we'll continue Injection Vancomycin * if she continues to improve,we will with change it to Clindamycin 300 mg po every 8 hours, for total 7-10 day course * Stop the IV fluids as the BP was normal * We will consider decolonization as an outpatient upon discharge * Possible discharge on Tuesday * Diet -regular, high caloric * DVT prophylaxis - Lovenox subcutaneous * Code-Full Code Problem List: 1. Furuncle of nasal cavity 2. Abscess and cellulitis Pain Ratin Pain Location: Upper lip Pain Goal: Remain pain free Pain Plan: moderate to severe Tomorrow's Labs & Rationales: cbc,bep
--- NOTE | 2016-11-13 14:57 | PN- Ear, Nose & Throat ---
Subjective Subjective: Upper Lip with less swelling Review of Systems: Noncontributory Objective Vital Signs and I&Os Vital Signs Date Time Temp Pulse Resp B/P Pulse O2 O2 Flow FiO2 Ox Delivery Rate 11/13 0744 98.1 83 20 110/56 98 11/13 0100 98.5 72 16 100/58 99 Room Air 11/12 1622 98.0 83 20 100/50 97 Room Air Intake & Output 11/13 1600 11/13 0800 11/13 0000 11/12 1600 11/12 0800 11/12 0000 Intake Total 8865 410 5937 1700 640 250 Output Total 600 Balance 557 126 6820 1700 640 250 Intake, IV 350 389 485 2809 400 250 Intake, Oral 800 720 400 240 Output, Urine 600 Patient 94 lb 15.99 oz 94 lb 15.99 oz Weight Physical Exam: Upper lip- mild edema and tenderness Mucosal edema, minimal drainage from the incision site Assessment/Plan Assessment/Plan Upper lip cellulitis/ abscess s/p I&D upper lip abscess, 11/12/2016 Infection improved Patient instructed to continue upper lip massage Continue with IV vancomycin Cultures and sensitivity pending OK for discharge tomorrow if antibiotic sensitivities are ready to switch patient to oral antibiotics Core Measures/Miscellaneous Venous Thromboembolism VTE Risk Factors: Acute medical illness VTE Contraindications: No Contraindications VTE Prophylaxis Ordered Inpt: Pharm- Lovenox VTE Diagnosis: No VTE Type: NONE VTE Confirmed by (Test): NONE Beta Seferino Is Beta Seferino a Home Med? No Antibiotics Is Patient on Antibiotics? Yes
[2016-11-13 16:21] VITALS: BP 96/52
[2016-11-13 22:00] VITALS: BP 100/70
[2016-11-14 08:14] LABS: ABSOLUTE BASOPHIL COUNT 0 /CUMM (0.0-0.2); ABSOLUTE EOSINOPHIL COUNT 0.3 /CUMM (0.0-0.7); ABSOLUTE GRANULOCYTE CT 3.2 /CUMM (1.4-6.5); ABSOLUTE LYMPH COUNT 0.8 /CUMM (1.2-3.4); ABSOLUTE MONOCYTE COUNT 0.5 /CUMM (0.10-0.60); BASOPHIL % 0.4 % (0.0-2.0); EOSINOPHIL % 5.7 % (0-5); GRANULOCYTE % 66.5 % (42.2-75.2); HEMATOCRIT 32.3 % (37-47); MEAN CORPUSCULAR HGB 32.2 PG (27.0-31.0); MEAN CORPUSCULAR HGB CONC 34.8 G/DL (33.0-37.0); MEAN CORPUSCULAR VOLUME 92.5 FL (81.0-99.0); MEAN PLATELET VOLUME 7.5 FL (7.4-10.4); PLATELET COUNT 166 /CUMM (130-400); RBC DISTRIBUTION WIDTH 13.1 % (11.5-14.5); RED BLOOD CELL CT 3.49 /CUMM (4.20-5.40); WHITE BLOOD CELL COUNT 4.8 /CUMM (4.8-10.8)
--- NOTE | 2016-11-14 08:24 | PN- Housestaff ---
See Addendum Subjective Follow-up For: MRSA Furunculosis with subsequent development of a premaxilliary Abscess Tele-Events Since Last Visit: Patient is off telemetry Subjective: Patient was seen and examined this morning, she reported improvement of the facial pain, denied any fever, headache, visual changes. Vital signs are stable , no overnight events reported by the nurse of the patient. Review of Systems Constitutional: Reports: see HPI. Objective Last 24 Hrs of Vital Signs/I&O Vital Signs Date Time Temp Pulse Resp B/P Pulse O2 O2 Flow FiO2 Ox Delivery Rate 11/14 0841 98.7 62 16 98/56 97 Room Air 11/13 2200 98.4 68 20 100/70 98 Room Air 11/13 1621 98.6 77 20 96/52 98 Room Air Intake & Output 11/14 1600 11/14 0800 11/14 0000 Intake Total 200 200 Output Total Balance 200 200 Intake, Oral 200 200 Physical Exam General Appearance: Alert, Oriented X3, Cooperative, No Acute Distress Skin: No Rashes, No Breakdown, No Significant Lesion HEENT: Atraumatic, PERRLA, EOMI, Mucous Membr. moist/pink, no sinus maxillary or frontal sinus tenderness, no nasal discharge or erythema, swelling of her upper lip improved significantly Neck: Supple Lymphatic: no cervical lymphadenopathy Cardiovascular: Regular Rate, Normal S1, Normal S2, No Murmurs Lungs: Clear to Auscultation, Normal Air Movement Abdomen: Normal Bowel Sounds, Soft, No Tenderness Neurological: Normal Gait, Normal Speech, Strength at 5/5 X4 Ext, Normal Tone, Sensation Intact, Cranial Nerves 3-12 NL, Reflexes 2+ Extremities: No Clubbing, No Cyanosis, No Edema, Normal Pulses Assessment/Plan Assessment: This is a 36-year-old female with past medical history of MRSA who has developed a furuncle and further developed an abcsess. Patient does not endorse any factors that might be predisposing her to recurrent infections. She does state that she has been compliant with mupirocin and Chlorhexidine wipes. Maxillofacial with contrast CT There is a peripherally enhancing fluid collection within the premaxillary soft tissues consistent with an abscess. There are no periapical lucencies in the maxillary alveolar process therefore this abscess is not felt to be odontogenic. Problems MRSA Furunculosis with subsequent development of a premaxilliary Abscess Hypotension -recovered Culture of the lip abscess shows staph aureus Plan - * Continue pain medication Percocet 2 tablets every 4 when necessary, patient was started on 1 tab every 6 giving low blood pressure * Continue IV vancomycin * Will discharge patient on Clindamycin 300 mg po every 8 hours, for total 7-10 day course today day 3 * DC IV fluids * Patient was instructed to follow up with Dr. schuster as an outpatient for decolonization * Blood culture remain negative, wound culture positive for MRSA sensitive to clindamycin Diet -regular, high caloric DVT prophylaxis - Lovenox subcutaneous Code-Full Code Consultation ID Problem List: 1. Furuncle of nasal cavity Pain Ratin Pain Location: left nostril Pain Goal: Pain 4 or less Pain Plan: Percocet 2 tabs every 4 when necessary Tomorrow's Labs & Rationales: Patient is for discharge today
[2016-11-14 08:41] VITALS: BP 98/56
[2016-11-14] MEDS ORDERED: CLINDAMYCIN HC300 M1 PO ×2 (11:37→12:02)
--- NOTE | 2016-11-14 11:41 | Discharge Summary ---
Visit Information Visit Dates Admission Date: 11/11/16 Discharge Date: 11/14/16 Hospital Course Course Attending Physician: FRANK MATAMOROS MD Primary Care Physician: GIBRAN OTERO MD Hospital Course: This is a 36-year-old female with past medical history of recent multiple skin MRSA infection who has developed a furuncle of left nosrail and further developed a premaxillary abcsess. Patient does not endorse any factors that might be predisposing her to recurrent infections. She does state that she has been compliant with mupirocin and Chlorhexidine wipes. On admission Vitals: Tmax 100.4, otherwise stable. Nasal exam suggestive of a small indurated erythematous area to the left columella, with swelling extending to upper lip. Labs: WBC 11.3, BUN/creatinine 19/1, electrolytes within normal. Maxillofacial with contrast CT FINDINGS: There is a peripherally enhancing discrete fluid collection located within the premaxillary soft tissues to the left of midline measuring 1.3 x 1.5 cm in AP by transverse dimensions. This finding is best illustrated on axial postcontrast image 86 of 233 series 5. There is inflammatory stranding within the adjacent subcutaneous tissues. There are no periapical lucencies in the maxillary alveolar process therefore this abscess is not felt to be odontogenic. There is mild lobulated mucosal thickening within the alveolar recesses of both maxillary sinuses. The primary maxillary sinus ostia are patent. There is bilateral infundibular narrowing. No ostiomeatal unit dysfunction. The left frontal sinus is well aerated. The right is not pneumatized. Frontal recesses are patent. Ethmoid air cells and sphenoid sinus are well aerated. Sphenoethmoidal recesses are patent. The nasal septum deviates the left anteriorly. The nasal cavity is otherwise unremarkable. The lamina papyracea and orbital floors are intact. There is no worrisome retrobulbar mass or inflammation. Orbital apices are unremarkable. Limited visualization of intracranial structures reveals no abnormal finding. There is no mastoid or middle ear effusion. The temporomandibular joints are symmetric. IMPRESSION: There is a peripherally enhancing fluid collection within the premaxillary soft tissues consistent with an abscess. There are no periapical lucencies in the maxillary alveolar process therefore this abscess is not felt to be odontogenic. Patient was admitted to [facility] for the following problems, Problems #MRSA Furunculosis with subsequent development of a premaxilliary Abscess #Hypotension -recovered * Patient was started on IV vancomycin and Unasyn, Unasyn was discontinued and we continued the vancomycin for 2 days. Based on culture sensitivity, the antibiotic was switched to oral clindamycin 300 mg po every 8 hours for additional 8 days to finish total of 10 days antibiotic course * Adequate pain control with Percocet 2 tablets every 4 when necessary. Upon discharge, patient was given 8 tablets of Percocet 1 tab every 4 hours when necessary for 3 days * Patient was instructed to follow up with Dr. Whatley as an outpatient for decolonization * Blood culture remains negative, wound culture positive for MRSA sensitive to clindamycin * Patient had initially low blood pressure, remained asymptomatic, was given bolus of 1 L IVF, blood pressure improved. Patient reported history of low blood pressure that asymptomatic Diet regular DVT prophylaxis Lovenox subcutaneous Code Full Code Consultation ID Allergies: Coded Allergies: Sulfa (Sulfonamide Antibiotics) ([facility] 11/11/16) diphenhydramine (From BENADRYL) (HEART RACING, ANXIETY, PANIC ATTACK 11/11/16) sulfamethoxazole (From BACTRIM) ([facility] 11/11/16) trimethoprim (From BACTRIM) ([facility] 11/11/16) Disposition Summary Disposition Principal Diagnosis: MRSA Furunculosis with subsequent development of a premaxilliary Abscess Additional Diagnosis: Hypotension Discharge Disposition: home or self care Discharge Instructions General Discharge Information Code Status: Full Code Patient's Diet: Regular diet Patient's Activity: As tolerated Follow-Up Instructions/Appts: -Please follow up with your primary care physician within 1 week after discharge -Please follow-up with Dr. Whatley the infection disease specialist as an outpatient 1 weeks after discharge Medications at Discharge Discharge Medications: Continue taking these medications: Multivitamin (Multi-Day Vitamins) 1 EACH TABLET 1 Tablet ORAL DAILY Comments: Last Taken: 11/14/16 Time: 11 AM Multivitamin With Minerals (Hair, Skin & Nails) 1 EACH TABLET 1 Tablet ORAL DAILY Comments: NOT GIVEN IN HOSPITAL Lysine HCl (L-Lysine) (Unknown Strength) TABLET Unknown Dose ORAL DAILY Comments: NOT GIVEN IN HOSPITAL Start taking the following new medications: Clindamycin HCl (Clindamycin HCl) 300 MG CAPSULE 1 Capsule ORAL THREE TIMES DAILY Qty = 24 No Refills Comments: Last Taken: 11/14/16 Time: 11 AM IV ABX GIVEN IN HOSPITAL Oxycodone HCl/Acetaminophen (Percocet 5-325 MG Tablet) 5 MG-325 MG TABLET 1 Tablet ORAL EVERY 4 HOURS NEEDED as needed for PAIN SCALE 7-10 (SEVERE) Qty = 18 No Refills Comments: Last Taken: 11/14/16 Time: 11 AM Copies To: NIA KHOURY,ALTAF De Guzman
--- NOTE | 2016-11-14 11:41 | Patient Discharge Instructions ---
Discharge Instructions General Discharge Information Special Instructions: -Please follow up with your primary care physician within 1 week after discharge -Please follow-up with Dr. Whatley the infection disease specialist as an outpatient 1 weeks after discharge Acute Coronary Syndrome Inclusion Criteria At DC or during hospital stay patient has or had the following: ACS DIAGNOSIS No Discharge Core Measures Meds if any: Prescribed or Continued at Discharge Meds if any: NOT Prescribed or Continued at Discharge Congestive Heart Failure Inclusion Criteria At DC or during hospital stay patient has or had the following: CHF DIAGNOSIS No Discharge Core Measures Meds if any: Prescribed or Continued at Discharge Meds if any: NOT Prescribed or Continued at Discharge Cerebrovascular accident Inclusion Criteria At DC or during hospital stay patient has or had the following: CVA/TIA Diagnosis No Discharge Core Measures Meds if any: Prescribed or Continued at Discharge Meds if any: NOT Prescribed or Continued at Discharge Venous thromboembolism Inclusion Criteria VTE Diagnosis No VTE Type NONE VTE Confirmed by (Test) NONE Discharge Core Measures - Per Current guidelines, there needs to be overlap - treatment for the first 5 days of Warfarin therapy. - If discharged on Warfarin prior to 5 days of - overlap therapy, the patient will need to be - assessed for post discharge needs including - *Post discharge parental anticoagulation - *Warfarin and/or parental anticoagulation education - *Follow up date to check INR post discharge At least 5 days overlap therapy as Inpatient Yes Meds if any: Prescribed or Continued at Discharge Note: Overlap Therapy is Warfarin and Anticoagulant Meds if any: NOT Prescribed or Continued at Discharge
[2016-11-14] MEDS ORDERED: PERCOCET 5-3251 EACH PO (12:02)
== END 2016-11-14 15:10 | DRG 156 ==
LOC: ENRESERVTM → ENRESERVDT → ENRESERV → ERH 19:24 → ENPENDDIS 22:44 → ERHI 22:44 → 1NO 22:44
PROVIDERS: Physician Assistant Surgical; Student in an Organized Health Care Education/Training Program; ADMIT Student in an Organized Health Care Education/Training Program
PROC: 0C90XZX Drainage of Upper Lip, External Approach, Diagnostic (ICD-10-PCS; principal; 2016-11-12)
DX: J34.0 Abscess, furuncle and carbuncle of nose (principal); B95.62 Methicillin resistant Staphylococcus aureus infection as the cause of diseases classified elsewhere
CPT/HCPCS: 1NP; 87075; 87184; ERO; 36415; 82436; 87040; 87070; 87147; 96374; 96375; J1885; J3370; J7040; J7060; Q2036